=== PATIENT | male | born 1975 | race Caucasian/White ===

== ENCOUNTER 2017-05-10 10:37 | Emergency (ER) | payer SELFPAY ==
[2015-10-13 11:15] VITALS: Ht 182.9 cm; Wt 77.1 kg
[~2017-05-10] VITALS: Ht 182.9 cm; Wt 77.1 kg
[~2017-05-10 10:37] MED LIST: BUPR-126 PO; BUPR-474 PO; LEVO50TA80 PO; MIRT-1 PO; MULT-1379 PO; NIC10R INH
--- NOTE | 2017-05-10 10:53 | ER Report ---
History and Physical Time Seen By MD: 10:52 Hx. of Stated Complaint: WANTS TO GO TO [facility]. HAS HAS SUICIDAL THOUGHTS ALL MORNING HPI/ROS Troy is a 41-year-old male history of depression and PTSD does see a psychologist at [facility] says his psychologist recently he had 5 beers and dropped acid last night was feeling more suicidal this morning it had been increase increasingly stressed he is on Workmen's Comp. for fractured foot has been on Workmen's Comp. 4 months states his bills are piling up states that he would take a lot of pills to kill himself is tearful asking for help Allergies: Coded Allergies: No Known Drug Allergies (Unverified , 05/10/17) Home Meds Reported Medications Levothyroxine Sodium (SYNTHROID) 50 Mcg Tablet, 50 MCG PO QDAY, #30 TAB 2 Refills 10/14/15 Mirtazapine (REMERON) 15 Mg Tablet, 15 MG PO QHS, #30 2 Refills Take one tablet one hour prior to intention to sleep. 10/14/15 Bupropion Hcl (WELLBUTRIN SR) 150 Mg Tablet.er, 150 MG PO BIDBL, #60 TAB 2 Refills 10/14/15 Discontinued Reported Medications Multivits,Th W-Fe,Other Min (THERA-M) 1 Each Tablet, 1 EACH PO QDAY 10/14/15 Past Medical/Surgical History Depression, PTSD, hypothyroidism Hx Smoking: Yes Smoking Status: Current: Every Day Smoker Exposure to Second Hand Smoke?: Yes Hx Substance Use Disorder: Yes (USED ACID LAST NIGHT) Hx Alcohol Use: Yes Family History of: HTN Constitutional Vital Sign - Last 24 Hours 05/10/17 13:44 Pulse 96 Resp 14 B/P (MAP) 124/92 (103) Pulse Ox 93 O2 Delivery Room Air Physical Exam 41 year old male tearful alert and oriented mild distress shaky , head normocephalic and atraumatic tm non reddened, throat non reddened, hrr lungs cta abd soft carty Medical Decision Making Data Points Result Diagram: 05/10/17 1049 05/10/17 1049 Laboratory Hematology Test 05/10/17 10:49 05/10/17 12:42 Red Blood Count 5.26 M/uL (4.00-5.60) Mean Corpuscular Volume 92.0 fL (80.0-96.0) Mean Corpuscular Hemoglobin 32.3 pg (26.0-33.0) Mean Corpuscular Hemoglobin Concent 35.0 g/dL (32.0-36.0) Red Cell Distribution Width 13.9 % (11.5-14.5) Mean Platelet Volume 8.0 fL (7.2-11.1) Neutrophils (%) (Auto) 66.2 % (39.4-72.5) Lymphocytes (%) (Auto) 24.8 % (17.6-49.6) Monocytes (%) (Auto) 7.3 % (4.1-12.4) Eosinophils (%) (Auto) 0.9 % (0.4-6.7) Basophils (%) (Auto) 0.8 % (0.3-1.4) Nucleated RBC Relative Count (auto) 0.1 /100WBC Neutrophils # (Auto) 5.0 K/uL (2.0-7.4) Lymphocytes # (Auto) 1.9 K/uL (1.3-3.6) Monocytes # (Auto) 0.6 K/uL (0.3-1.0) Eosinophils # (Auto) 0.1 K/uL (0.0-0.5) Basophils # (Auto) 0.1 K/uL (0.0-0.1) Nucleated RBC Absolute Count (auto) 0.01 K/uL Sodium Level 141 mmol/L (137-145) Potassium Level 3.8 mmol/L (3.5-5.0) Chloride Level 102 mmol/L (98-107) Carbon Dioxide Level 20 mmol/L (22-30) Blood Urea Nitrogen 8 mg/dl (9-21) Creatinine 0.90 mg/dl (0.66-1.25) Glomerular Filtration Rate Calc > 60.0 Random Glucose 97 mg/dl (75-110) Calcium Level 9.8 mg/dl (8.4-10.2) Total Bilirubin 0.6 mg/dl (0.2-1.3) Aspartate Amino Transf (AST/SGOT) 31 U/L (0-35) Alanine Aminotransferase (ALT/SGPT) 49 U/L (0-56) Alkaline Phosphatase 108 U/L (0-126) Total Protein 8.1 gm/dl (6.3-8.2) Albumin 4.9 g/dl (3.5-5.0) Lipase 49 U/L (23-300) Thyroid Stim Hormone, Ultra Sensitv 0.578 uIU/ml (0.465-4.680) Salicylates Level < 10 mg/L Salicylate Last Dose Date unknown Acetaminophen Level < 10 ug/ml Urine Color Yellow Urine Clarity Clear Urine pH 5.0 pH (4.8-9.5) Urine Specific Heaters 1.009 Urine Protein Negative mg/dL (NEGATIVE) Urine Glucose (UA) Negative mg/dL (NEGATIVE) Urine Ketones Trace mg/dL (NEGATIVE) Urine Blood Negative (NEGATIVE) Urine Nitrite Negative (NEGATIVE) Urine Bilirubin Negative (NEGATIVE) Urine Urobilinogen Negative mg/dL (0.2-1.9) Urine Leukocyte Esterase Negative (NEGATIVE) Urine RBC <1 /HPF (0-2/HPF) Urine WBC 1 /HPF (0-5/HPF) Urine Squamous Epithelial Cells None /LPF (</=FEW) Urine Bacteria Negative /HPF (NONE-FEW) Urine Mucus None /HPF (NONE-FEW) Urine Opiates Screen Negative Urine Barbiturates Screen Negative Ur Tricyclic Antidepressants Screen Negative Urine Phencyclidine Screen Negative Urine Amphetamines Screen Negative Urine Benzodiazepines Screen Negative Urine Cocaine Screen Negative Urine Cannabinoids Screen Positive Chemistry Test 05/10/17 10:49 05/10/17 12:42 White Blood Count 7.6 k/uL (4.5-11.0) Red Blood Count 5.26 M/uL (4.00-5.60) Hemoglobin 17.0 g/dL (14.0-18.0) Hematocrit 48.4 % (42.0-52.0) Mean Corpuscular Volume 92.0 fL (80.0-96.0) Mean Corpuscular Hemoglobin 32.3 pg (26.0-33.0) Mean Corpuscular Hemoglobin Concent 35.0 g/dL (32.0-36.0) Red Cell Distribution Width 13.9 % (11.5-14.5) Platelet Count 334 K/uL (150-450) Mean Platelet Volume 8.0 fL (7.2-11.1) Neutrophils (%) (Auto) 66.2 % (39.4-72.5) Lymphocytes (%) (Auto) 24.8 % (17.6-49.6) Monocytes (%) (Auto) 7.3 % (4.1-12.4) Eosinophils (%) (Auto) 0.9 % (0.4-6.7) Basophils (%) (Auto) 0.8 % (0.3-1.4) Nucleated RBC Relative Count (auto) 0.1 /100WBC Neutrophils # (Auto) 5.0 K/uL (2.0-7.4) Lymphocytes # (Auto) 1.9 K/uL (1.3-3.6) Monocytes # (Auto) 0.6 K/uL (0.3-1.0) Eosinophils # (Auto) 0.1 K/uL (0.0-0.5) Basophils # (Auto) 0.1 K/uL (0.0-0.1) Nucleated RBC Absolute Count (auto) 0.01 K/uL Glomerular Filtration Rate Calc > 60.0 Calcium Level 9.8 mg/dl (8.4-10.2) Total Bilirubin 0.6 mg/dl (0.2-1.3) Aspartate Amino Transf (AST/SGOT) 31 U/L (0-35) Alanine Aminotransferase (ALT/SGPT) 49 U/L (0-56) Alkaline Phosphatase 108 U/L (0-126) Total Protein 8.1 gm/dl (6.3-8.2) Albumin 4.9 g/dl (3.5-5.0) Lipase 49 U/L (23-300) Thyroid Stim Hormone, Ultra Sensitv 0.578 uIU/ml (0.465-4.680) Salicylates Level < 10 mg/L Salicylate Last Dose Date unknown Acetaminophen Level < 10 ug/ml Urine Color Yellow Urine Clarity Clear Urine pH 5.0 pH (4.8-9.5) Urine Specific Heaters 1.009 Urine Protein Negative mg/dL (NEGATIVE) Urine Glucose (UA) Negative mg/dL (NEGATIVE) Urine Ketones Trace mg/dL (NEGATIVE) Urine Blood Negative (NEGATIVE) Urine Nitrite Negative (NEGATIVE) Urine Bilirubin Negative (NEGATIVE) Urine Urobilinogen Negative mg/dL (0.2-1.9) Urine Leukocyte Esterase Negative (NEGATIVE) Urine RBC <1 /HPF (0-2/HPF) Urine WBC 1 /HPF (0-5/HPF) Urine Squamous Epithelial Cells None /LPF (</=FEW) Urine Bacteria Negative /HPF (NONE-FEW) Urine Mucus None /HPF (NONE-FEW) Urine Opiates Screen Negative Urine Barbiturates Screen Negative Ur Tricyclic Antidepressants Screen Negative Urine Phencyclidine Screen Negative Urine Amphetamines Screen Negative Urine Benzodiazepines Screen Negative Urine Cocaine Screen Negative Urine Cannabinoids Screen Positive Toxicology Test 05/10/17 10:49 05/10/17 12:42 Salicylates Level < 10 mg/L Salicylate Last Dose Date unknown Acetaminophen Level < 10 ug/ml Urine Opiates Screen Negative Urine Barbiturates Screen Negative Ur Tricyclic Antidepressants Screen Negative Urine Phencyclidine Screen Negative Urine Amphetamines Screen Negative Urine Benzodiazepines Screen Negative Urine Cocaine Screen Negative Urine Cannabinoids Screen Positive Urinalysis Test 05/10/17 12:42 Urine Color Yellow Urine Clarity Clear Urine pH 5.0 pH (4.8-9.5) Urine Specific Heaters 1.009 Urine Protein Negative mg/dL (NEGATIVE) Urine Glucose (UA) Negative mg/dL (NEGATIVE) Urine Ketones Trace mg/dL (NEGATIVE) Urine Blood Negative (NEGATIVE) Urine Nitrite Negative (NEGATIVE) Urine Bilirubin Negative (NEGATIVE) Urine Urobilinogen Negative mg/dL (0.2-1.9) Urine Leukocyte Esterase Negative (NEGATIVE) Urine RBC <1 /HPF (0-2/HPF) Urine WBC 1 /HPF (0-5/HPF) Urine Squamous Epithelial Cells None /LPF (</=FEW) Urine Bacteria Negative /HPF (NONE-FEW) Urine Mucus None /HPF (NONE-FEW) ED Course/Re-evaluation Clinical Indication for ER IV: Hydration ED Course We'll give fluids with a banana bag note the patient states he has been binge drinking when depression gets worse that's his reaction has been taking his depression medications did use acid last night I did talk to Dr. Pickens but this patient he agrees to accept him to behavioral health Re-evaluation calm cooperative, wasnt able to sit in a room by himself that is better Decision to Disposition Date: May 10, 2017 Decision to Disposition Time: 12:18 Depart Departure Latest Vital Signs Vital Signs Date Time Temp Pulse Resp B/P (MAP) Pulse Ox O2 Delivery O2 Flow Rate FiO2 05/10/17 13:44 96 14 124/92 (103) 93 Room Air Impression: Primary Impression: Depression Additional Impression: Suicidal ideation Condition: Improved Disposition: XFER TO [facility] UNIT Problem Qualifiers DILMA AGUILAR May 10, 2017 10:53
[2017-05-10] MEDS ORDERED: THIAMINE HCL(*) 200 MG/2 ML IN 100 MG, FOLIC ACID(*) 50 MG/10 ML INJ 1 MG, MULTIVITAMIN... IV ONE (11:01)
[2017-05-10 11:05] LABS: PLATELET COUNT, AUTOMATED 334 K/uL (150-450)
[2017-05-10] MEDS ORDERED: LORazepam 2 MG/ML VIAL IVP ONE (11:05)
[2017-05-10] MEDS ORDERED: THIAMINE HCL 200 MG/2 ML INJ ONE (11:07)
[2017-05-10] MEDS ORDERED: MAGNESIUM SUL 50% 1GM/2ML VIAL ONE (11:07)
[2017-05-10] MEDS ORDERED: NS(*) 0.9% 1000 ML BAG 1,000 ML ONE (11:07)
[2017-05-10] MEDS ORDERED: FOLIC ACID 50 MG/10 ML 1ML INJ ONE (11:07)
[2017-05-10 13:44] VITALS: BP 124/92
== END 2017-05-10 13:45 ==
LOC: ER 10:59
DX: F32.9 Major depressive disorder, single episode, unspecified (principal); R45.851 Suicidal ideations
CPT/HCPCS: 36415; 80305; 80329; 81001; 83690; 84443; 85025; 96365; 96366; 96375; 99285; J2060; J3411; J3475; J7030; 82040; 82247; 82310; 82374; 82435; 82565; 82947; 84075; 84132; 84155; 84295; 84450; 84460; 84520

== ENCOUNTER 2017-05-10 13:33 | Inpatient (IN) | payer SELFPAY ==
[2015-10-13 11:15] VITALS: Ht 182.9 cm; Wt 77.1 kg
[~2017-05-10] VITALS: Ht 182.9 cm; Wt 77.1 kg
[2017-05-10 14:32] VITALS: BP 140/82
[2017-05-10] MEDS ORDERED: MAG HYD/AL HYD/SIMETH 30ML UDC PO PRN (14:55)
[2017-05-10] MEDS ORDERED: NICOTINE POLACRILEX 4 MG LOZG PO PRN (15:00)
[2017-05-10] MEDS ORDERED: hydrOXYzine PAMOATE 25 MG CAP PO PRN (19:50)
[2017-05-10 21:06] VITALS: BP 121/83
[2017-05-11] MEDS: LEVOTHYROXINE SOD 0.025 MG TAB PO SCH (05:32)
[2017-05-11 06:33] VITALS: BP 99/64
[2017-05-11] MEDS ORDERED: buPROPion XL 150 MG TABCR PO SCH (08:00)
[2017-05-11] MEDS: MULTIVITAMINS PO SCH (08:27)
[2017-05-11] MEDS: FOLIC ACID 1 MG TAB PO SCH (08:27)
[2017-05-11] MEDS: THIAMINE HCL 100 MG TAB PO SCH (08:27)
[2017-05-11] MEDS ORDERED: buPROPion XL 150 MG TABCR PO ONE (12:10)
[2017-05-11] MEDS ORDERED: CHOLECALCIFEROL 1000 UNIT TAB PO SCH (12:20)
[2017-05-11] MEDS: OMEGA-3 500 MG CAP PO SCH (12:56)
[2017-05-11 13:56] VITALS: BP 122/76
[2017-05-11] MEDS ORDERED: CHOLECALCIFEROL 1000 UNIT TAB PO ONE (14:00)
[2017-05-11] MEDS ORDERED: NICOTINE POLACRILEX 2 MG GUM PO PRN (17:55)
--- NOTE | 2017-05-11 18:05 | HISTORY AND PHYSICAL ---
DATE OF ADMISSION: May 10, 2017 This patient was seen on the morning of May 11, 2017 at approximately 1100 hours. PRESENTING PROBLEM/CHIEF COMPLAINT "Suicidal thoughts nearly everyday." HISTORY OF PRESENT ILLNESS This is a very pleasant, cooperative 41-year-old male that had one previous psychiatric inpatient stay here in September of 2015. Patient returns stating he is not sure if his meds are working currently. The majority of the time recently he has felt depressed. Patient does report that he felt fairly okay a few months back, but states it generally does not last long and depression returns. Patient reports appetite has probably been decreased some. He has guilt and remorse over negative family relationships and the loss of his brother in the past. Patient reports energy level is down. Concentration is variable at times. He has some loss of interest in things he enjoyed. Patient reports poor sleep at times, suicidal thoughts, and patient overall just says, "I don't want to feel like crap all the time." Patient admits to continued use of cannabis which has increased and has been daily for the last week or so. Patient reports alcohol use at four to five beers daily recently, but patient has had periods of sobriety that are lengthy in nature. Patient did use LSD one time recently according to him prior to admission, however, this did not seem to the patient to result in any positive or negative outcomes, and the patient thinks it was bad LSD. 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 Patient has been several months out of work on [employer]. Patient reports his job has been replaced and he needs to find something else to do. Patient also reports he needs to find somewhere else to live. He has been living with roommates which are leaving in the coming summer. Patient does report financial stressors ongoing as he has been out of work. Patient is hopeful though that his foot will continue to recover and he will move to [place] at this time. Patient reports he needs to see his orthopedic doctor on May 25. MENTAL HEALTH HISTORY This is actually the third inpatient stay, as patient was an inpatient once about 12 years ago. Patient in the past is vague to the details of that admission. Patient has been on the unit here in September of 2015 as well. He does have one suicide attempt in the past where he overdosed on medication. Other than that patient reports he deals with the suicidal thoughts, but does not plan to take it any further. He just wishes he could feel better. Patient has been continuing to go to [facility] where he unfortunately has developed a close relationship with a therapist who recently . This is bothersome to the patient. Patient was going to see a therapist named Carlo, to transfer his therapy over at [facility], when he instructed them he feels bad enough he wants to come to the hospital. Patient remains taking Wellbutrin as prescribed. He has not been taking Remeron, although he reports it has helped with sleep in the past. Patient was diagnosed with ADHD and prescribed Ritalin at age 14, which he has stated was not that helpful in his opinion. FAMILY PSYCHIATRIC HISTORY Patient reports his mother suffers from anxiety and depression. A grandfather on mother's side suffered from alcoholism. Brother suffered from cocaine use and alcoholism, and the patient reports a 12-year-old niece who had overdosed in the past. PAST MEDICAL HISTORY Significant for tinnitus in the left ear, and an attempt at surgical correction which did not work. Significant for hypothyroidism. Patient reports no allergies. Other than that patient states he is in good health. MEDICATIONS Patient currently using Wellbutrin 150 mg q.a.m. and 150 mg q.noon. Patient does remain on Synthroid it is believed. SOCIAL HISTORY Patient was born in [place], raised in [place]. Parents were at the time of his . Father about two years ago. He was not very close to him. Patient reports two brothers and a sister believed to be still living whom he is not in communication with. Patient is a high school graduate. He has completed [employer]. Patient has never been in the , never . Not believed to have a significant other. Patient has no children. Patient in the past has reported "I don't remember a lot growing up, " and has reported being estranged overall from family members. At this time patient is unemployed, having previously worked at a local [employer] shop. Patient seemingly unwilling to give the name of where he was working. SUBSTANCE ABUSE HISTORY Patient reports in the past, "I drank alcohol for a long time." Patient admits to using beer most recently on a daily basis. Patient smoking on and off nicotine. Patient has tried stimulatory drugs in the past such as cocaine. Patient reported he did not care for the experience. Patient has reported in the past that his drug of choice would be cannabis, which in the past he states helped with anxiety. Patient has been using cannabis on a daily basis for the last week or so. PHYSICAL EXAMINATION GENERAL: Please see emergency room note. Notable for a depressed appearing 41- year-old male in no acute medical distress. VITAL SIGNS: At the time of admission, pulse 96, respiratory rate 14, blood pressure 124/92, pulse oximetry 93 on room air. LABORATORY DATA CBC unremarkable. CMP unremarkable. TSH 0.578. Urinalysis unremarkable. Toxicology screen positive for cannabis, negative for other substances of abuse. Alcohol level was not drawn. MENTAL STATUS EXAMINATION GENERAL APPEARANCE, BEHAVIOR AND ATTITUDE: This is a cooperative 41-year-old male making good eye contact. Psychomotor retardation evident. Patient also tearful at times during initial interview. Patient appears to overall be an accurate historian and was very cooperative with evaluation. SPEECH: Within normal limits, regular rate, rhythm volume and tone. MOOD: Described as depressed. AFFECT: Constricted, mood congruent. THOUGHT PROCESSES: Goal directed and logical in some ways. No loose associations or flight of ideas. THOUGHT CONTENT: Free of auditory or visual hallucinations, ideas of reference , thought broadcastings, delusions, obsessions, compulsions. Ongoing suicidal thoughts that are fleeting in nature. Denying homicidal ideation. SENSORIUM: Clear. COGNITION: Alert and oriented to person, place, time and situation. MEMORY: Immediate, recent and remote estimated intact. INTELLIGENCE: Average based on interview and previous admission. INSIGHT AND JUDGMENT: Considered grossly intact in the absence of drug or alcohol use. Patient seeking voluntary help for depressive concerns. ASSESSMENT This is a 41-year-old male who is pleasant and cooperative on the unit. Patient indicating severe depression at this time. We will look into medications and may try to increase dose of Wellbutrin and restart Remeron in an effort to exhaust potential of current regimen. Patient also having a lot of identified social stressors, work and financial stressors as well. DIAGNOSES PER DSM-V Major depression, recurrent severe, without psychotic features. Cannabis use disorder, moderate. Social stressors, employment and financial stressors. Patient also has a history of hypothyroidism. PLAN 1. Admit to the unit. 2. Necessary precautions to be implemented. 3. Patient will participate in individual and group therapy. 4. Medications will to be adjusted, titrated accordingly. 5. Collateral information to be obtained as necessary. 6. Estimated length of stay three to five days. 7. Will get further lab work at this time. [facility]
[2017-05-11] MEDS ORDERED: MIRTAZAPINE 15 MG TAB PO SCH (21:00)
[2017-05-12 04:56] VITALS: BP 107/71
[2017-05-12] MEDS: LEVOTHYROXINE SOD 0.025 MG TAB PO SCH (05:34)
[2017-05-12] MEDS: OMEGA-3 500 MG CAP PO SCH (08:36)
[2017-05-12] MEDS: buPROPion XL 150 MG TABCR PO SCH ×2 (08:37→12:41)
[2017-05-12] MEDS: CHOLECALCIFEROL 1000 UNIT TAB PO SCH (08:37)
[2017-05-12] MEDS: FOLIC ACID 1 MG TAB PO SCH (08:37)
[2017-05-12] MEDS: THIAMINE HCL 100 MG TAB PO SCH (08:38)
[2017-05-12] MEDS: MULTIVITAMINS PO SCH (08:38)
[2017-05-12 11:42] VITALS: BP 130/74
--- NOTE | 2017-05-12 13:13 | BHS Progress Note ---
[facility] - Subjective Progress Notes Subjective Patient reports sleep not improved last night on remeron. Patient does report positive results from hydroxyzine, but tonight will stop Remeron, and start trazodone for anti-depressant effects. Mood improving on increased Wellbutrin with no negative side effects. Patient mood improving. No other concerns. Suicidal Ideation: Resolving Homicidal Ideation: None [facility] - Objective Physical Exam Vital Signs Vital Signs Date Time Temp Pulse Resp B/P (MAP) Pulse Ox O2 Delivery O2 Flow Rate FiO2 05/12/17 11:42 99.1 72 130/74 (92) 96 Room Air 05/12/17 04:56 15 Hematology Test 05/10/17 10:49 Vitamin D 25-Hydroxy 19 ng/ml (30-100) Free Thyroxine 1.10 ng/dl (0.78-2.19) Chemistry Test 05/10/17 10:49 Vitamin D 25-Hydroxy 19 ng/ml (30-100) Free Thyroxine 1.10 ng/dl (0.78-2.19) Muscle Strength and Tone: WNL Gait and Station: Steady [facility] Medications Reviewed: Side Effects, Benefits of Medication, Risks Allergies Reviewed: Yes Mental Status Exam General Appearance: Casual, Well Groomed, Good Eye Contact, Cooperative, Polite , Good Interaction, No Unkept, No Tearful, No Psychomotor Agitation, No Psychomotor Retardation, No Bizarre Mannerisms, No Tics Speech: Clear, Spontaneous, Normal Rate, Normal Rhythm, Normal Volume, Normal Tone Mood: Dysthmic/Depressed (improving) Affect: Full and Appropriate, Calm, No Sad, No Neutral, No Flat, No Withdrawn, No Tearful, No Anxious, No Agitated Thought Process: Organized, Logical, Goal Directed, No Loose Associations, No Flight of Ideas Thought Content: Suicidal Ideation (resolving), No Homicidal Ideation, No Delusions, No Auditory Halllucinations, No Visual Hallucinations, No Thought Broadcasting, No Ideas of Reference, No Obsessions, No Compulsions Sensorium: Clear Cognition: Alert & Oriented-Person, Alert & Oriented-Place, Alert & Oriented- Time, Nszpi-Xneaveqo-Oentxysyt Memory: Immediate, Recent, Remote Intelligence: Average Insight Judgment: Fair (improving) [facility] Assessment and Plan [id number] Encounter Date: May 12, 2017 [id number] Encounter Time: 09:30 [facility] Plan: Necessary Precautions, Individual/Group Therapy, Admin/Titrate Meds, Educate Patient Problems: (1) Cannabis use disorder, severe, in controlled environment Status: Chronic (2) Major depression, recurrent Status: Chronic Condition 1. stop remeron. 2. start trazodone 150mg 3. potential discharge tomorrow. Problem Qualifiers (1) Major depression, recurrent: Major depression episode severity: moderate MIGUELINA VARGAS MD May 12, 2017 13:13
[2017-05-12] MEDS ORDERED: traZODone HCL 50 MG TAB PO SCH (21:00)
[2017-05-13] MEDS: LEVOTHYROXINE SOD 0.025 MG TAB PO SCH (05:53)
[2017-05-13 06:01] VITALS: BP 98/44
[2017-05-13] MEDS: MULTIVITAMINS PO SCH (08:24)
[2017-05-13] MEDS: CHOLECALCIFEROL 1000 UNIT TAB PO SCH (08:25)
[2017-05-13] MEDS: FOLIC ACID 1 MG TAB PO SCH (08:25)
[2017-05-13] MEDS: OMEGA-3 500 MG CAP PO SCH (08:25)
[2017-05-13] MEDS: buPROPion XL 150 MG TABCR PO SCH ×2 (08:25→12:35)
[2017-05-13] MEDS: THIAMINE HCL 100 MG TAB PO SCH (08:25)
[2017-05-13] MEDS ORDERED: BUPR-474 PO (11:11)
[2017-05-13] MEDS ORDERED: CHOL10005 PO (11:12)
[2017-05-13] MEDS ORDERED: OMEG-11 PO (11:12)
[2017-05-13] MEDS ORDERED: NICO-219 BC (11:13)
[2017-05-13] MEDS ORDERED: MIRT-1 PO (11:14)
[2017-05-13 12:45] VITALS: BP 131/85
--- NOTE | 2017-05-13 15:21 | BHS Discharge Summary ---
[facility] Discharge Summary [id number] Encounter Date: May 13, 2017 [id number] Encounter Time: 11:03 Reason-Hosp/Final Diag (DSM-V): (1) Major depression, recurrent Status: Chronic Hospital Course & Plan: Pt was admitted to [facility] and maintained on suicide precautions, There were no parasuicidal behaviors on the unit, the patient denied suicidal ideation by his second hospital day, he was cooperative and active in all groups and individual sessions. His wellbutrin was increased to 300mg q am and 150mg q lunchtime. He tried vistaril the first night for sleep, remeron the second night, and trazodone the third night-- ultimately he felt the remeron 15 mg was most helpful and he chose to stay on this as out patient. By discharge his mood was improved, he was future-oriented, and was tolerating medications well without side effects. The plan was to follow up at [facility]. (2) Suicidal ideation Status: Resolved (3) Cannabis use disorder, severe, in controlled environment Status: Chronic Hospital Course & Plan: Pt participated in education regarding negative sequelae of cannabis abuse, especially in presence of a mood disorder, pt verbalizing desire to remain abstinent. Physical Exam Latest Vital Signs Vital Signs 05/13/17 12:45 Temp 98.9 Pulse 69 Resp 16 B/P (MAP) 131/85 (100) Pulse Ox 96 O2 Delivery Room Air Mental Status Exam General Appearance: Casual, Well Groomed, Good Eye Contact, Cooperative, Polite , Good Interaction Speech: Clear, Spontaneous, Normal Rate, Normal Rhythm, Normal Volume, Normal Tone Mood: Euthymic Affect: Full and Appropriate, Calm, No Sad Thought Process: Organized, Logical, Goal Directed, No Loose Associations, No Flight of Ideas Thought Content: No Suicidal Ideation, No Homicidal Ideation, No Delusions, No Auditory Halllucinations, No Visual Hallucinations, No Thought Broadcasting, No Ideas of Reference, No Obsessions, No Compulsions, No Other Sensorium: Clear Cognition: Alert & Oriented-Person, Alert & Oriented-Place, Alert & Oriented- Time, [id number]-[id number]-[id number] Memory: Immediate, Recent, Remote Intelligence: Average Insight Judgment: Good Departure Condition: Improved Discharge Instructions Home Meds Reported Medications Mirtazapine (REMERON) 15 Mg Tablet, 15 MG PO QHS 05/13/17 Nicotine Polacrilex (NICORETTE) 2 Mg Gum, 2 MG BC Q1-2H, GUM 05/13/17 Cholecalciferol (Vitamin D3) (VITAMIN D3) 1,000 Unit Tablet, 4000 UNIT PO DAILY , TAB 05/13/17 [place]-3 Fatty Acids/Fish Oil (FISH OIL 1,000 MG CAPSULE) 1 Each Capsule, 1 EACH PO DAILY, CAPSULE 05/13/17 Bupropion Hcl (WELLBUTRIN XL) 300 Mg Tab.er.24h, 300 MG PO QAM, TAB 05/13/17 Levothyroxine Sodium (SYNTHROID) 50 Mcg Tablet, 50 MCG PO QDAY, #30 TAB 2 Refills 10/14/15 Bupropion Hcl (WELLBUTRIN SR) 150 Mg Tablet.er, 150 MG PO NOON, #60 TAB 2 Refills 10/14/15 Discontinued Reported Medications Multivits,Th W-Fe,Other Min (THERA-M) 1 Each Tablet, 1 EACH PO QDAY 10/14/15 Activity: As Tolerated Special Instructions: Discharge home today. Follow up with [facility] for outpatient therapy and medication management. Problem Qualifiers (1) Major depression, recurrent: Major depression episode severity: moderate HOME CONLEY MD May 13, 2017 15:21
== END 2017-05-13 15:40 | disposition home or self-care (01) | DRG 885 ==
LOC: BHS 13:33
PROVIDERS: ADMIT Psychiatry & Neurology Psychiatry; ATTEND Psychiatry & Neurology Psychiatry
DX: F33.1 Major depressive disorder, recurrent, moderate (principal); R45.851 Suicidal ideations; F12.20 Cannabis dependence, uncomplicated; H93.12 Tinnitus, left ear; E03.9 Hypothyroidism, unspecified; F16.90 Hallucinogen use, unspecified, uncomplicated; F17.210 Nicotine dependence, cigarettes, uncomplicated; Z91.5 Personal history of self-harm; Z81.8 Family history of other mental and behavioral disorders; Z81.1 Family history of alcohol abuse and dependence; Z56.0 Unemployment, unspecified
CPT/HCPCS: 82306; 84439; 84481; 90853; Q0177